=== PATIENT | female | born 2000 | race Caucasian/White ===

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

== ENCOUNTER 2018-01-30 05:54 | Emergency (ER) | payer OTHER ==
[~2018-01-30] VITALS: Ht 154.9 cm; Wt 61.2 kg
[~2018-01-30 05:54] MED LIST changes: +ZOFRAN4 M2 PO
--- NOTE | 2018-01-30 06:31 | ED GENERAL ADULT ---
History of Present Illness General Chief Complaint: Abdominal Pain/Flank Pain Stated Complaint: ?OVARIAN CYST Source: patient Exam Limitations: no limitations Vital Signs & Intake/Output Vital Signs & Intake/Output Vital Signs Date Time Temp Pulse Resp B/P B/P Pulse O2 O2 Flow FiO2 Mean Ox Delivery Rate 01/30 0603 96.5 81 20 118/78 98 Room Air Room Air Allergies Coded Allergies: NO KNOWN ALLERGIES (10/15/14) Reconcile Medications Albuterol Sulfate (Proventil Hfa) 90 MCG HFA.AER.AD 2 PUF INH Q4 PRN shortness of breath Cyclobenzaprine HCl 10 MG TABLET 1 TAB PO QPM PRN MUSCLE RELAXOR Ondansetron HCl (Zofran) 4 MG TABLET 1 TAB PO Q6-8P PRN NAUSEA Triage Note: 17YO FEMAEL TO TRIAGE W/CO LLQ PAIN THAT RADIATES TO L LOWER BACK THAT AWOKE HER AT 0300. STAES HX OF " MULTIPLE OVARIAN CYSTS AND THIS FEELS LIKE ONE" Triage Nurses Notes Reviewed? yes Onset: Abrupt Duration: hour(s): : No Patient currently breastfeeds: No HPI: 01/30/18 17-year-old female presents to the emergency department with a sudden onset of severe left-sided flank pain. She has pain to the left lower quadrant. She said the onset of the pain started this evening. She said her last menstrual period was approximately 2 weeks ago when she denies any possibility of . She does admit to some mild dysuria. She denies vaginal discharge. (Bogdan Lao DO) Past History Travel History Traveled to [place] past 21 day No Medical History Any Pertinent Medical History? 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 No (Bogdan Lao DO) Review of Systems Review of Systems Constitutional: Denies: fever. EENTM: Denies: visual changes. Respiratory: Denies: short of breath. Cardiovascular: Denies: chest pain. GI: Reports: abdominal pain. Genitourinary: Reports: dysuria. Musculoskeletal: Reports: back pain. Skin: Denies: rash. Neurological/Psychological: Reports: see HPI. Hematologic/Endocrine: Reports: see HPI. Immunologic/Allergic: Reports: see HPI. (Bogdan Lao DO) Physical Exam Physical Exam General Appearance: well developed/nourished, alert, awake, anxious, moderate distress Head: atraumatic, normal appearance Eyes: Bilateral: normal appearance, PERRL, EOMI. Ears, Nose, Throat: normal pharynx, normal ENT inspection Neck: normal inspection, supple, full range of motion Respiratory: normal breath sounds, chest non-tender, no respiratory distress Cardiovascular: regular rate/rhythm Peripheral Pulses: 4+ radial (R), 4+ radial (L) Gastrointestinal: soft, tenderness (LLQ) Back: normal inspection, normal range of motion Extremities: normal inspection, normal range of motion, no edema Neurologic/Psych: no motor/sensory deficits, awake, alert, oriented x 3, normal gait Skin: intact, normal color Core Measures ACS in differential dx? No CVA/TIA Diagnosis: No Sepsis Present: No Sepsis Focused Exam Completed? No (Bogdan Lao DO) Progress Differential Diagnoses I considered the following diagnoses in my evaluation of the patient: [Ovarian cyst, pyelonephritis, cervicitis, ovarian torsion, ectopic ,] Plan of Care: Orders Procedure Date/time Status Add-on Test (ER Only) 01/30 709 Active CHLAMYDIA-GC DNA PROBE 01/31 612 Active URINE 01/31 612 Complete URINALYSIS 01/31 612 Complete Laboratory Tests 01/30/18611: Urine Color YEL, Urine Clarity HAZY H, Urine pH 6.0, Ur Specific [place] >= 1.030, Urine Protein NEG, Urine Ketones NEG, Urine Nitrite NEG, Urine Bilirubin NEG, Urine Urobilinogen 0.2, Ur Leukocyte Esterase NEG, Ur Microscopic SEDIMENT EXAMINED, Urine RBC 25-50 H, Urine WBC RARE, Ur Epithelial Cells MANY H, Urine Bacteria MOD H, Urine Mucus FEW, Urine Hemoglobin LARGE H, Urine Glucose NEG, Urine Test NEGATIVE Microbiology 01/31 612 URINE ROUT: GC DNA Probe - RECD 01/31 612 URINE ROUT: Chlamydia DNA Probe (ANJANA) - RECD Initial ED EKG: none (Bogdan Lao DO) Diagnostic Imaging: Discussed w/RAD: Ultrasound. Radiology Impression: PATIENT: JEM BENZ PRESENT AGE: 17 PATIENT ACCOUNT NO: [id number] : 98 LOCATION: [facility] ORDERING PHYSICIAN: Bogdan Lao DO SERVICE DATE: 01/30/18 EXAM TYPE: US - US-TRANSVAGINAL EXAMINATION: ULTRASOUND OF THE PELVIS CLINICAL INFORMATION: Left flank pain. Assess for ovarian cyst/torsion. COMPARISON: Pelvic ultrasound dated 09/05/2015 and 03/01/2015. TECHNIQUE: Transabdominal and transvaginal pelvic ultrasound. A transvaginal study was performed in addition to the transabdominal study which did not yield an adequate examination of the uterus and ovaries due to superimposed distended gas-filled loops of bowel. FINDINGS: Uterus: The uterus is anteverted and normal in size and appearance, measuring 5.8 x 2.9 x 4.0 cm. The endometrial stripe thickness is normal, measuring 0.3 cm in thickness. No focal myometrial mass is seen. The cervical length is normal measuring 2.1 cm. Ovaries: The ovaries bilaterally are visualized and appear normal, with the right ovary measuring 2.9 x 1.4 x 2.1 cm (4.5 mL volume) and the left ovary measuring 2.7 x 2.0 x 2.4 cm (6.8 mL volume). Normal bilateral ovarian follicles are seen. With color Doppler imaging, normal arterial and venous flow to both ovaries is seen. Other: No adnexal mass or free fluid collection seen. IMPRESSION: Normal exam. No evidence of ovarian cyst or torsion. DICTATED BY: Patricia Starks MD DATE/TIME DICTATED:01/30/18940 MANAGER ACADEMIC:DANIEL DATE/TIME TRANSCRIBED:01/30/18940 CONFIDENTIAL, DO NOT COPY WITHOUT APPROPRIATE AUTHORIZATION. <Electronically signed in Other Vendor System> SIGNED BY: Patricia Starks MD 01/30/18 0950, PATIENT: JEM BENZ PRESENT AGE: 17 PATIENT ACCOUNT NO: [id number] : 98 LOCATION: [facility] ORDERING PHYSICIAN: Bogdan Lao DO SERVICE DATE: 01/30/18 EXAM TYPE: US - US-RENAL/KIDNEY EXAMINATION: US RETROPERITONEAL COMPLETE (RENAL) CLINICAL INFORMATION: Left flank pain. Presumptive diagnosis of renal colic. COMPARISON: Right upper quadrant ultrasound dated 08/03/2016. CTA of the chest dated 08/08/2016. TECHNIQUE: Real- time imaging of the kidneys and bladder. FINDINGS: RIGHT KIDNEY: 10.7 x 4.5 x 5.1 cm (SAG x AP x TRV). The kidney is normal in size, contour, and echogenicity. Renal cortical thickness is normal. No calculi or focal parenchymal lesions. No hydronephrosis. LEFT KIDNEY: 10.1 x 4.2 x 4.2 cm (SAG x AP x TRV). The kidney is normal in size, contour, and echogenicity. Renal cortical thickness is normal. No calculi or focal parenchymal lesions. No hydronephrosis. BLADDER: Partially decompressed (22 mL volume) and therefore suboptimally assessed, but grossly unremarkable. Bilateral ureteral jets are demonstrated. Patient voided just prior to the exam. IMPRESSION: 1. Normal kidneys. No evidence of nephrolithiasis or hydronephrosis. 2. Bladder suboptimally assessed due to decompressed state, but grossly unremarkable. DICTATED BY: Patricia Starks MD DATE/TIME DICTATED:01/30/18935 MANAGER ACADEMIC:DANIEL DATE/TIME TRANSCRIBED:01/30/18935 CONFIDENTIAL, DO NOT COPY WITHOUT APPROPRIATE AUTHORIZATION. <Electronically signed in Other Vendor System> SIGNED BY: Patricia Starks MD 01/30/18 0944 Comments: 01/30/2018 10:10:10 AM patient signed out to me by Dr. Lao at shift manager of change. I have updated Jem on her test results. The cause of her pressure sensation over the left suprapubic region is unclear at this point. It appears to be no indication renal colic or ovarian cyst/torsion. I feel patient is stable for outpatient management via her primary care doctor. (Alea GONZALEZ,Bogdan Ramos) Departure Departure Condition: Stable Referrals: Patient Has No Primary Care Dr (PCP/Family) Departure Forms: Customer Survey General Discharge Information Comments 01/30/18 Labs have been ordered. The patient was given IV fluids and IV Tylenol. She will be signed out to Dr. Cosby at 7 AM. (Bogdan Lao DO) Departure Disposition: HOME OR SELF CARE Clinical Impression Primary Impression: Abdominal pain Qualifiers: Abdominal location: left lower quadrant Qualified Code: R10.32 - Left lower quadrant pain Additional Instructions: Diclofenac as needed for your abdominal pain. Follow-up with your primary care physician this week for reevaluation. Since the cause of your symptoms is somewhat unclear at this point please Return if any concerns or sudden worsening. Please note that there might be incidental findings in your evaluation that are unrelated to the current emergency department visit. Please notify your primary care doctor about this emergency department visit in order to obtain and review all of the testing performed so that these incidental findings can be monitored as needed. If you had an x-ray performed, please understand that some fractures or other findings may not be seen on the initial set of x-rays. If your symptoms persist you might need a repeat set of x-rays to check for such a fracture. If you had a laceration evaluated, please understand that foreign bodies such as glass or wood may not be visible to the naked eye or on plain x-rays. If the wound becomes red, swollen, increasingly more painful or if there is any drainage from the wound, please have it reevaluated by a physician for the possibility of a retained foreign body. If you're unable to follow up as outlined in the discharge instructions please return to the emergency department. Thank you for choosing the [facility] Emergency Department for your care. It was a pleasure to serve you today. Bogdan Cosby M.D. [facility] Prescriptions: Current Visit Scripts Diclofenac Sodium 1 TAB PO BID PRN PAIN #14 TAB (Alea GONZALEZ,Bogdan Ramos) Critical Care Note Critical Care Note Critical Care Time: non-applicable (Bogdan Lao DO)
--- NOTE | 2018-01-30 09:44 | ULTRASOUND REPORT ---
EXAMINATION: US RETROPERITONEAL COMPLETE (RENAL) CLINICAL INFORMATION: Left flank pain. Presumptive diagnosis of renal colic. COMPARISON: Right upper quadrant ultrasound dated 08/03/2016. CTA of the chest dated 08/08/2016. TECHNIQUE: Real-time imaging of the kidneys and bladder. FINDINGS: RIGHT KIDNEY: 10.7 x 4.5 x 5.1 cm (SAG x AP x TRV). The kidney is normal in size, contour, and echogenicity. Renal cortical thickness is normal. No calculi or focal parenchymal lesions. No hydronephrosis. LEFT KIDNEY: 10.1 x 4.2 x 4.2 cm (SAG x AP x TRV). The kidney is normal in size, contour, and echogenicity. Renal cortical thickness is normal. No calculi or focal parenchymal lesions. No hydronephrosis. BLADDER: Partially decompressed (22 mL volume) and therefore suboptimally assessed, but grossly unremarkable. Bilateral ureteral jets are demonstrated. Patient voided just prior to the exam. IMPRESSION: 1. Normal kidneys. No evidence of nephrolithiasis or hydronephrosis. 2. Bladder suboptimally assessed due to decompressed state, but grossly unremarkable.
--- NOTE | 2018-01-30 09:50 | ULTRASOUND REPORT ---
EXAMINATION: ULTRASOUND OF THE PELVIS CLINICAL INFORMATION: Left flank pain. Assess for ovarian cyst/torsion. COMPARISON: Pelvic ultrasound dated 09/05/2015 and 03/01/2015. TECHNIQUE: Transabdominal and transvaginal pelvic ultrasound. A transvaginal study was performed in addition to the transabdominal study which did not yield an adequate examination of the uterus and ovaries due to superimposed distended gas-filled loops of bowel. FINDINGS: Uterus: The uterus is anteverted and normal in size and appearance, measuring 5.8 x 2.9 x 4.0 cm. The endometrial stripe thickness is normal, measuring 0.3 cm in thickness. No focal myometrial mass is seen. The cervical length is normal measuring 2.1 cm. Ovaries: The ovaries bilaterally are visualized and appear normal, with the right ovary measuring 2.9 x 1.4 x 2.1 cm (4.5 mL volume) and the left ovary measuring 2.7 x 2.0 x 2.4 cm (6.8 mL volume). Normal bilateral ovarian follicles are seen. With color Doppler imaging, normal arterial and venous flow to both ovaries is seen. Other: No adnexal mass or free fluid collection seen. IMPRESSION: Normal exam. No evidence of ovarian cyst or torsion.
[2018-01-30] MEDS ORDERED: DICLOFENAC SODI75 M2 PO (10:12)
[2018-01-30 10:34] VITALS: BP 112/68
== END 2018-01-30 10:34 ==
LOC: ERH 05:54
DX: R10.32 Left lower quadrant pain (principal); R30.0 Dysuria; E11.9 Type 2 diabetes mellitus without complications; E03.9 Hypothyroidism, unspecified
CPT/HCPCS: 76775; 81001; 81025; 87491; 87591